=== PATIENT | female | born 1930 | race Caucasian/White ===

== ENCOUNTER → 2018-10-10 | Outpatient (CLI) | payer MEDICARE, BC ==
[~2018-10-10] MED LIST: ACYCLOVIR 200200 MG PO; ASPIR 8181 M1 PO; BP MED PO; CALCIUM 600 +1 EAC1 PO; CALCIUM-MAG-ZI1 EACH PO; CALCIUM500 MG PO; CATAPRESS3 TRANSDERM; CIPROFLOXACIN500 M1 PO; COLACE100 MG PO; CYCLOBENZAPRINE5 MG PO; DIOVAN320 MG PO; ETODOLAC 400 M400 M1 PO; FISH OIL 1,001000 M2 PO; FOLIC ACID0.8 MG PO; HCTZ; HYDROCHLOROTH12.5 M1 PO; HYDROCHLOROTHIA25 M1 PO; IRON325; K-DUR 20 MEQ T20 MEQ PO; LIPITOR10 MG PO; LISINOPRIL20 MG PO; MAGNESIUM GLUC500 M1 PO; MAGNESIUM400 MG PO; MAGOX 400400 MG PO; MELATONIN1 MG PO; MELATONIN3 MG PO; METOPROLOL SUCC50 MG PO; MINOCYCLINE HC100 M2 PO; NEXIUM; NEXIUM40 MG PO; NORCO 5-325 TA1 EACH PO; NORVASC10 MG PO; NORVASC5 MG PO; PLAVIX 75 MG TA75 M1 PO; POTASSIUM20; THIAMINE HCL500 MG PO; TOPROL XL100 MG PO; TOPROL XL50 MG PO; VITAMIN B-121000 MCG PO; VITAMIN D1000 UNI1 PO; VOLTAREN 50MG T50 MG PO; ZOCOR; ZOFRAN ODT4 MG PO
== END ==
LOC: M.MRI 09-12 14:30
DX: I63.9 Cerebral infarction, unspecified (principal); Z88.8 Allergy status to other drugs, medicaments and biological substances; Z88.5 Allergy status to narcotic agent

== ENCOUNTER → 2019-03-07 | Outpatient (CLI) | payer MEDICARE, BC ==
[~2019-03-07] MED LIST changes: +HYDROCODON-ACE1 EAC7 PO; +METOPROLOL SUC200 MG PO; -METOPROLOL SUCC50 MG PO
--- NOTE | ~2019-03-07 | PAINCON ---
[address] [address] PAIN MANAGEMENT CONSULTATION Name: SHAILA CHRISTIANSON Room: [facility] JAMEL Bowman#: [id number] Admission: 03/07/19 Attend Phys: Dion Ortega MD Discharge: Date of : 32 Report #: [id number] THIS REPORT FOR: //name// CC: Kathryn Ortega DATE OF SERVICE: 03/07/2019 CHIEF COMPLAINT: Back, cervical and lumbar pain for years. HISTORY: The patient is an 88-year-old female who has been seen in the pain clinic because of chronic pain. She suffers from pain and discomfort in the back and neck area. She has been quite problematic since 2017. The patient did have a CVA on 02/20/2017. Pain has gotten progressively worse. 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 She is less active at this point. Notes that her pain is a zero while she is sitting. Pain is most problematic when she is up and active. It can rise to the level of 8-9 with activity. She notes that cleaning and vacuuming are the two components which are most problematic. Vacuuming is quite objectionable. She has a history of spinal stenosis. Does note that sitting at the sink helps with the pain. After standing for a few minutes, the spinal stenosis pain starts to become problematic. Radiates down into her legs. Finds that sitting at the sink improves them so that she is able to finish a sink load of dishes. Feels that walking is "generally pretty good. She does have some pain in her knees. She has had both knees replaced, one partial and the other completely. Does have some pain and discomfort in the left and the right hip area. She does walk and use the cane. She has had SI joint injections in the past and found these beneficial. She feels that she would like to consider another injection in the future. She is currently on Plavix and cannot undergo an injection today. ALLERGIES: CODEINE, LIPITOR, CELEBREX. CURRENT MEDICATIONS: Aspirin 81 mg, Lipitor 10 mg, calcium, magnesium, zinc tablets daily, vitamin D 1000 units, Plavix 75 mg, vitamin B12 1000 mcg, fish oil 1000 mg, Colace 100 mg, hydrocodone 5/325 b.i.d., magnesium oxide 400 mg, melatonin 3 mg sleep supplement, metoprolol 200 mg ____. PAST MEDICAL HISTORY: Diabetes, hypertension, thyroid disease, joint disease/arthritis, history of transient ischemic attack in 2015, chronic kidney disease, GERD, anemia, shingles, seizures x 2, TIA x 2, right-sided CVA in 02/2017, hiatal hernia, back pain. PAST SURGICAL HISTORY: Hysterectomy, parotid gland removal, left ankle fracture, bilateral knee replacements. 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 REVIEW OF SYSTEMS: Generally good health, wears glasses, glaucoma/cataracts, ringing in the ears/loss of hearing. LABORATORY DATA: No new laboratory values are available. PAIN CLINIC ASSESSMENT AND PQRS: 1. The patient has had knee replacements, left and right. Height 5 feet 0 inches, weight 170 pounds, BMI 33.2. 2. Vital Signs: Blood pressure 187/73, heart rate 57, respiratory rate 16, room air saturation 96%, temperature 97.6. 3. Pain intensity 0-10 while sitting 8-9 with activity. 4. Fall risk. The patient has not fallen in the last 3 months. She does ambulate with use of a cane. 5. Blood thinner. The patient is on a blood thinning medication, Plavix. 6. Hypertension. The patient is being treated for hypertension. 7. Opioids greater than 6 weeks. The patient is not on a opioid regimen. 8. Risk assessment tool, low for opioid use. 9. Functional assessment tool. 10. Recreational drug use. The patient denies. 11. Tobacco: The patient denies use of tobacco. 12. Alcohol. The patient denies use of alcoholic beverage. PHYSICAL EXAMINATION: GENERAL: The patient is a well-developed, well-nourished white female, who appears her stated age. She is alert and oriented x 3. Affect is appropriate. Speech is fluent. HEENT: Normocephalic, atraumatic. Extraocular eye muscles intact. Sclerae nonicteric. Mucous membranes are moist. HEART: Regular rate. LUNGS: Clear to auscultation. ABDOMEN: Nontender. MUSCULOSKELETAL: Upper extremity muscle strength judged to be 4-/5 for the major muscle groups in the upper extremity. The patient has pain in the low back area. Has pain in the area of her SI joint, left and right. Has pain in the mid back area across the lumbar area near L4-L5 and L5-S1 with pain radiating into the paraspinous muscle areas. The patient also has pain that radiates down into the left and the right SI joints. IMPRESSION: 1. Chronic back pain with spinal stenosis with pain that radiates down into the buttocks and hip areas. 2. SI joint pain, left and right. 3. Cervical pain. 4. Diabetes. [address] [place] [address] PAIN MANAGEMENT CONSULTATION Name: SHAILA CHRISTIANSON Room: [facility].#: [id number] Admission: 03/07/19 Attend Phys: Dion Ortega MD Discharge: Date of : 32 Report #: [id number] 5. Hypertension. 6. Thyroid disease. 7. Joint disease/arthritis. 8. History of transient ischemic attack in 2015. 9. Chronic kidney disease. 10. Gastroesophageal reflux disease. 11. Anemia. 12. Shingles. 13. Seizures x 2. 14. Transient ischemic attack x 2. 15. Right-sided cerebrovascular accident in 02/2017. 16. Hiatal hernia. 17. Back pain. RECOMMENDATIONS: We discussed treatment options with the patient. At this juncture, we will consider a trial of hydrocodone. The patient will try the hydrocodone medication and note its efficacy. She will return to the Pain Clinic in the near future should she desire to have a SI joint injection. These were performed in the past and she found that these were beneficial and help with pain, which is similar to what she is experiencing. The patient is aware that opioid medications can be problematic. She has taken them before. She finds that these medications are quite helpful, particularly when she is having pain. She will call us if she has any concerns. We would like to thank you for letting us participate in her care. We hope she continues to improve. By: [id number] [id number]. Fco Ortega MD /nt
== END ==
LOC: M.PC 04:49
DX: M54.5 Low back pain (principal); M54.2 Cervicalgia; G89.29 Other chronic pain; K21.9 Gastro-esophageal reflux disease without esophagitis; E11.22 Type 2 diabetes mellitus with diabetic chronic kidney disease; I12.9 Hypertensive chronic kidney disease with stage 1 through stage 4 chronic kidney disease, or unspecified chronic kidney disease; N18.9 Chronic kidney disease, unspecified; Z88.5 Allergy status to narcotic agent; Z79.82 Long term (current) use of aspirin; Z79.899 Other long term (current) drug therapy; Z86.73 Personal history of transient ischemic attack (TIA), and cerebral infarction without residual deficits; Z90.710 Acquired absence of both cervix and uterus; Z96.653 Presence of artificial knee joint, bilateral; Z79.891 Long term (current) use of opiate analgesic

== ENCOUNTER 2019-12-18 14:26 | Inpatient (IN) | payer MEDICARE, BC ==
[~2019-12-18] VITALS: Ht 157.5 cm; Wt 71.7 kg
--- NOTE | ~2019-12-18 | CON ---
[address] [address] CONSULTATION Name: MEGHANSHAILA CAMILO Room: [address] ADM IN M.R.#: [id number] Admission: 12/18/19 Attend Phys: Bear Blanca MD Discharge: Date of : 32 Report #: [id number] THIS REPORT FOR: //name// cc: Kathryn Rojo Maggie M. DO ~ THIS REPORT FOR: //name// CC: Bear Rojo DO DICTATED BY: Zaida Valdez POLYMERIZATION OVEN OPERATOR DATE OF SERVICE: 12/19/2019 Please note at the time of this dictation, the patient was seen and physically examined by myself. REASON FOR CONSULTATION: Melanotic stool. HISTORY OF PRESENT ILLNESS: This is an 89-year-old female who presented to the Emergency Room with complaints of having black stool, which she states has been occurring over the last several days; however, in talking with her, she does have somewhat of memory issues she states from a previous stroke 3 years ago. She tells me it has been 2-3 weeks; however, hemoglobin on admission is not reflective of that and on admission she was 13.7. She continues to complain that she has had melanotic stools, but she has had none since she has been here. The patient is also on Plavix as well due to her previous stroke. She states she has had upper and lower scopes done it sounds like at [facility] years ago and we will obtain those records. ALLERGIES: INCLUDE CELEBREX, STATINS AND CODEINE. MEDICATIONS: From home include Plavix, vitamin B12, fish oil, magnesium oxide, aspirin, vitamin D, melatonin, metoprolol, Plavix, Lipitor, calcium, and Colace. PAST MEDICAL HISTORY: Consistent of chronic kidney disease, GERD, anemia, hypertension, type 2 diabetes, hyperlipidemia, vitamin D deficiency, history of seizures, TIA x 2 with a right CVA in 02/2017, hiatal hernia, shingles. PAST SURGICAL HISTORY: Hysterectomy, parotid gland removal, left ankle fracture, bilateral knee replacements. FAMILY HISTORY: Negative for any GI or female cancers. SOCIAL HISTORY: Denies any alcohol, [place] [address] CONSULTATION Name: SHAILA CHRISTIANSON Room: [address] IN [facility].#: [id number] Admission: 12/18/19 Attend Phys: Bear Blanca MD Discharge: Date of : 32 Report #: [id number] REVIEW OF SYSTEMS: Twelve-point review of systems is essentially negative except what is mentioned in the HPI. PHYSICAL EXAMINATION: VITAL SIGNS: Temperature 36.6, pulse 79, respirations 18, blood pressure 179/55. HEART: Regular rate and rhythm. LUNGS: Clear. ABDOMEN: Soft, positive bowel sounds in all 4 quadrants with some slight epigastric tenderness noted to palpation. LABORATORY DATA: Hemoglobin 13.8, white count 9.9, platelets 217. GFR is 39, BUN is 21, creatinine is 1.3. LFTs are normal. On admission, her BUN was 26. PT 10.6, INR 1. The patient had a CT angio that shows a large hiatal hernia with no active extravasation of contrast to indicate an acute GI bleed. IMPRESSION: 1. Melanotic stool. 2. Epigastric pain. 3. Anticoagulant therapy. 4. History of cerebrovascular accident, 2017. PLAN: 1. EGD today with Dr. Khan. 2. Further recommendations to be made once the procedure has been performed. Thank you for allowing us to participate in this patient's care. Please do not hesitate to call with any questions in regard to this consult. By: 1133 1145Augustin Khan MD /nt
--- NOTE | ~2019-12-18 | PROC ---
[address] [address] PROCEDURE REPORT Name: SHAILA CHRISTIANSON Room: [address] IN M.R.#: [id number] Admission: 12/18/19 Attend Phys: Bear Blanca MD Discharge: 12/20/19 Date of : 32 Report #: [id number] THIS REPORT FOR: //name// cc: Kathryn Rojo Maggie M. DO ~ THIS REPORT FOR: //name// For GI report, please see the Provation report in Perceptive 7 content. By: 0830Medical Records Staff [facility] /LEIDY
[2019-12-18 14:32] VITALS: BP 100/999; BP 201/99
[2019-12-18] MEDS ORDERED: PLAVIX 75 MG TA75 MG PO (14:37)
[2019-12-18 14:57] LABS: ABSOLUTE BASOPHILS 0.1 thou/uL (0.0-0.2); ABSOLUTE EOSINOPHILS 0.3 thou/uL (0.0-0.7); ABSOLUTE LYMPHOCYTES 3.6 thou/uL (0.8-5.3); ABSOLUTE MONOCYTES 0.8 thou/uL (0.0-1.2); ABSOLUTE NEUTROPHILS 4.5 thou/uL (1.6-8.1); BASOPHILS 1.1 %; EOSINOPHILS 2.9 %; HEMATOCRIT 40.4 % (37.0-47.0); HEMOGLOBIN 13.7 gm/dL (12.0-15.0); LYMPHOCYTES 38.4 %; MCH 32.1 pg (26.0-34.0); MCHC 34.1 g/dL (28.0-37.0); MCV 94.3 fL (80.0-100.0); MONOCYTES 8.7 %; MPV 8.7 fl. (7.2-11.1); NUCLEATED RBCS 0 /100WBC; PLATELET COUNT* 238 thou/uL (150-400); POLYS 48.9 %; RBC 4.28 mil/uL (4.20-5.00); RDW-CV 13.8 % (10.5-14.5); WBC 9.3 thou/uL (4.0-11.0)
[2019-12-18 14:57] LABS: URINE BILIRUBIN NEGATIVE (Negative); URINE BLOOD NEGATIVE (Negative); URINE CLARITY CLEAR; URINE COLOR YELLOW; URINE GLUCOSE-RANDOM NEGATIVE (Negative); URINE KETONES NEGATIVE (Negative); URINE LEUKOCYTES-REFLEX NEGATIVE (Negative); URINE NITRITE-REFLEX NEGATIVE (Negative); URINE PROTEIN 2+ (Negative); URINE UROBILINOGEN 0.2 E.U./dl (0.2-1.0)
[2019-12-18 15:02] LABS: APTT 26.8 Seconds (25.0-31.3); CALCIUM 9.6 mg/dL (8.5-10.1); CREATININE 1.4 mg/dL (0.6-1.3); POTASSIUM 3.9 mmol/L (3.5-5.1); PROTIME 10.6 Seconds (9.20-11.50)
[2019-12-18 15:07] LABS: TOTAL BILIRUBIN 0.2 mg/dL (<0.1-1.0); TOTAL PROTEIN 7.3 g/dL (6.4-8.2)
[2019-12-18 15:07] LABS: BACTERIA-REFLEX 1-9 Few /HPF (None Seen); CASTS None Seen /LPF (None Seen); CRYSTALS None Seen /LPF (None Seen); SQUAMOUS 0-3 Few /LPF (0-3); URINE RBC 0-2 Rare /HPF (0-2); URINE WBC-REFLEX 0-5 Rare /HPF (0-5)
[2019-12-18 18:25] VITALS: BP 198/80
[2019-12-18 20:00] VITALS: BP 125/62
[2019-12-18] MEDS ORDERED: FISH OIL 1,0001 EAC9 PO (20:29)
[2019-12-19] VITALS (7 sets, daily range): BP systolic 124–181; BP diastolic 55–77
[2019-12-19 04:35] LABS: ABSOLUTE BASOPHILS 0.1 thou/uL (0.0-0.2); ABSOLUTE EOSINOPHILS 0.1 thou/uL (0.0-0.7); ABSOLUTE LYMPHOCYTES 2.5 thou/uL (0.8-5.3); ABSOLUTE MONOCYTES 0.9 thou/uL (0.0-1.2); ABSOLUTE NEUTROPHILS 6.3 thou/uL (1.6-8.1); BASOPHILS 0.8 %; HEMATOCRIT 40.4 % (37.0-47.0); HEMOGLOBIN 13.8 gm/dL (12.0-15.0); LYMPHOCYTES 25.4 %; MCHC 34.2 g/dL (28.0-37.0); MCV 93.7 fL (80.0-100.0); MPV 9.2 fl. (7.2-11.1); NUCLEATED RBCS 0 /100WBC; PLATELET COUNT* 217 thou/uL (150-400); POLYS 63.8 %; RBC 4.31 mil/uL (4.20-5.00); RDW-CV 13.8 % (10.5-14.5); WBC 9.9 thou/uL (4.0-11.0)
[2019-12-19 05:03] LABS: CALCIUM 9.4 mg/dL (8.5-10.1); CREATININE 1.3 mg/dL (0.6-1.3); POTASSIUM 3.3 mmol/L (3.5-5.1)
--- NOTE | 2019-12-19 12:32 | EKG ---
[place] [address] ELECTROCARDIOGRAM REPORT Name: GRIFFIN CHRISTIANSONDIJOSE PAGE Room: [address] ADM IN M.R.#: [id number] Admission: 12/18/19 Attend Phys: Bear Blanca, Discharge: Date of : 32 Date of Service: 12/18/19 1454 Report #: [id number] THIS REPORT FOR: //name// [facility] ED Test Date: 2019-12-18 Test Time: 14:54:30 Pat Name: SHAILA CHRISTIANSON Department: Room: [facility] Gender: F Quality Internship: : 1930 Requested By: Chi Jimenez Order Number: [id number] MD: Sal Sanders Measurements Intervals [place] Rate: 72 P: 84 [place]: 164 QRS: 59 QRSD: 141 T: -2 QT: 410 QTc: 449 Interpretive Statements Sinus rhythm Ventricular trigeminy Right bundle branch block Compared to ECG 03/25/2017 12:17:39 Ventricular premature complex(es) now present Electronically Signed On 12-19-2019 12:32:07 CDT by Sal Sanders [email or web address] <ELECTRONICALLY SIGNED> By: Sal Sanders MD, FACC 12/19/19 1232 1454 1454 Sal Sanders MD, FAC /EPI
[2019-12-20] VITALS (8 sets, daily range): BP systolic 138–236; BP diastolic 49–80
[2019-12-20 05:11] LABS: CALCIUM 9.2 mg/dL (8.5-10.1); CREATININE 1.5 mg/dL (0.6-1.3); POTASSIUM 4.6 mmol/L (3.5-5.1)
[2019-12-20 05:23] LABS: ABSOLUTE BASOPHILS 0.1 thou/uL (0.0-0.2); ABSOLUTE LYMPHOCYTES 2.6 thou/uL (0.8-5.3); ABSOLUTE MONOCYTES 0.8 thou/uL (0.0-1.2); ABSOLUTE NEUTROPHILS 6.3 thou/uL (1.6-8.1); BASOPHILS 0.8 %; EOSINOPHILS 0.3 %; HEMATOCRIT 38.5 % (37.0-47.0); HEMOGLOBIN 13.2 gm/dL (12.0-15.0); LYMPHOCYTES 26.3 %; MCH 32.4 pg (26.0-34.0); MCHC 34.4 g/dL (28.0-37.0); MCV 94.2 fL (80.0-100.0); MONOCYTES 8.1 %; NUCLEATED RBCS 0 /100WBC; PLATELET COUNT* 219 thou/uL (150-400); POLYS 64.5 %; RBC 4.09 mil/uL (4.20-5.00); RDW-CV 14.1 % (10.5-14.5); WBC 9.7 thou/uL (4.0-11.0)
[2019-12-20] MEDS ORDERED: PROTONIX40 M1 PO (10:07)
--- NOTE | 2019-12-23 15:10 | PATH ---
[address] [address] PATHOLOGY RPT PROCEDURE Name: CHRISTIANSONMANA CAMILO Room: [address] IN M.R.#: [id number] Admission: 12/18/19 Date of : 32 Discharge: 12/20/19 Report #: [id number] Path Case #: [id number] [facility] Accession Number: [id number] . 01 Material submitted: . stomach - GASTRIC BIOPSY R/O H-PYLORI . 01 Clinical history: . R/O H. pylori . 02 Diagnosis: Gastric biopsy: - Moderate chronic active gastritis with abundant Helicobacter pylori organisms, negative for granulomas and dysplasia. (EDOUARD:flaquita; 12/23/2019) . Special stain: H. pylori immuno QMS 12/23/2019 1130 Local . 02 Electronically signed: . Franc Shelton MD, Pathologist NPI- [id number] . 01 Gross description: . The specimen is received in formalin, labeled "Christianson, Mana, gastric biopsy" and consists of 3 fragments of pink-ortez tissue measuring between 0.2 x 0.2 cm and 0.3 x 0.3 cm which are entirely submitted in A1. (SDY; 12/20/2019) SYU/SYU 12/20/2019 1134 Local . 02 Pathologist provided ICD-10: K29.50, B96.81 . 02 CPT . 409186, E94710 Specimen Comment: A courtesy copy of this report has been sent to [phone] Specimen Comment: [phone], Specimen Comment: Report sent to ,DR MONROY / DR LOREDO Performed at: 01 [facility] [address] [facility] [address], [place], [place] [address] MD Yang Turner MD Phone: [phone] Performed at: 02 [facility] [address], [place], [place] [address] MD Franc Shelton MD Phone: [phone]
== END 2019-12-20 11:45 | disposition home or self-care (01) | DRG 377 ==
LOC: M.ERS 14:26 → M.TBA-ER 15:00 → M.2W 15:00
PROVIDERS: Family Medicine; ADMIT Internal Medicine; ATTEND Internal Medicine
PROC: 0DB68ZX Excision of Stomach, Via Natural or Artificial Opening Endoscopic, Diagnostic (ICD-10-PCS; principal; 2019-12-19)
DX: K29.71 Gastritis, unspecified, with bleeding (principal); N17.0 Acute kidney failure with tubular necrosis; Z20.828 Contact with and (suspected) exposure to other viral communicable diseases; K21.9 Gastro-esophageal reflux disease without esophagitis; E11.22 Type 2 diabetes mellitus with diabetic chronic kidney disease; E78.5 Hyperlipidemia, unspecified; Z96.653 Presence of artificial knee joint, bilateral; I12.9 Hypertensive chronic kidney disease with stage 1 through stage 4 chronic kidney disease, or unspecified chronic kidney disease; K44.9 Diaphragmatic hernia without obstruction or gangrene; N18.3 Chronic kidney disease, stage 3 (moderate); Z90.710 Acquired absence of both cervix and uterus; Z87.81 Personal history of (healed) traumatic fracture; Z86.73 Personal history of transient ischemic attack (TIA), and cerebral infarction without residual deficits; Z88.6 Allergy status to analgesic agent; Z88.8 Allergy status to other drugs, medicaments and biological substances; Z79.01 Long term (current) use of anticoagulants

== ENCOUNTER 2020-07-24 09:49 | Inpatient (IN) | payer MEDICARE, BC ==
[2020-07-24] VITALS (7 sets, daily range): BP systolic 116–202; BP diastolic 50–102
[~2020-07-24] VITALS: Ht 152.4 cm; Wt 68.2 kg
--- NOTE | ~2020-07-24 | PROC ---
[address] [address] PROCEDURE REPORT Name: SHAILA CHRISTIANSON Room: [address] IN M.R.#: [id number] Admission: 07/24/20 Attend Phys: Rica Douglas Discharge: 07/27/20 Date of : 32 Report #: [id number] THIS REPORT FOR: cc: Kathryn Rojo Maggie M. DO ~ [facility],Medical Records Staff For GI report, please see the Provation report in Perceptive 7 content. By: 1207Medical Records Staff [facility] /LEIDY
[~2020-07-24 09:49] MED LIST changes: +FISH OIL 1,0001 EAC9 PO; +PLAVIX 75 MG TA75 MG PO; +PROTONIX40 M1 PO
[2020-07-24 10:07] LABS: URINE BILIRUBIN NEGATIVE (Negative); URINE BLOOD NEGATIVE (Negative); URINE CLARITY CLEAR; URINE COLOR YELLOW; URINE GLUCOSE-RANDOM NEGATIVE (Negative); URINE KETONES NEGATIVE (Negative); URINE LEUKOCYTES-REFLEX NEGATIVE (Negative); URINE PROTEIN 3+ (Negative); URINE UROBILINOGEN 0.2 E.U./dl (0.2-1.0)
[2020-07-24 10:08] LABS: URINE NITRITE-REFLEX POSITIVE (Negative)
[2020-07-24 10:15] LABS: SQUAMOUS 0-3 Few /LPF (0-3)
[2020-07-24 10:16] LABS: CASTS None Seen /LPF (None Seen); CRYSTALS None Seen /LPF (None Seen); MUCUS None Seen strn/LPF (None Seen); URINE RBC None Seen /HPF (0-2); URINE WBC-REFLEX 0-5 Rare /HPF (0-5)
[2020-07-24 10:30] LABS: ABSOLUTE BASOPHILS 0.1 thou/uL (0.0-0.2); ABSOLUTE EOSINOPHILS 0.4 thou/uL (0.0-0.7); ABSOLUTE LYMPHOCYTES 2.9 thou/uL (0.8-5.3); ABSOLUTE MONOCYTES 0.8 thou/uL (0.0-1.2); ABSOLUTE NEUTROPHILS 4.3 thou/uL (1.6-8.1); BASOPHILS 1.3 %; HEMOGLOBIN 13.6 gm/dL (12.0-15.0); LYMPHOCYTES 33.7 %; MCH 31.4 pg (26.0-34.0); MCHC 33.2 g/dL (28.0-37.0); MCV 94.8 fL (80.0-100.0); MONOCYTES 9.7 %; NUCLEATED RBCS 0 /100WBC; PLATELET COUNT* 217 thou/uL (150-400); POLYS 50.3 %; RBC 4.33 mil/uL (4.20-5.00); RDW-CV 14.3 % (10.5-14.5); WBC 8.6 thou/uL (4.0-11.0)
[2020-07-24 10:41] LABS: CALCIUM 8.9 mg/dL (8.5-10.1); CREATININE 1.3 mg/dL (0.6-1.3); POTASSIUM 3.7 mmol/L (3.5-5.1)
[2020-07-24 10:46] LABS: ALBUMIN 3.8 g/dL (3.4-5.0); TOTAL BILIRUBIN 0.3 mg/dL (<0.1-1.0); TOTAL PROTEIN 6.7 g/dL (6.4-8.2)
--- NOTE | 2020-07-24 18:39 | NUR ---
RECEIVED BEDSIDE REPORT FROM ROGER IN ER. PT ARRIVED TO TELE FLOOR AROUND 1420. PT ORIENTED TO ROOM BED AND CALL LIGHT. ADMISSION ASSESSMENT, HISTORY, EDUCATION AND VITALS COMPLETED CHARTED. MEDS PER EMAR. PT TO HAVE GI CONSULT IN AM WITH POTENTIAL COLONOSCOPY. PT STEADY ON FEET, UP AD MARITZA MULTIPLE TIMES TO THE BATHROOM. PT CURRENTLY RESTING IN BED. CALL LIGHT IS WITHIN REACH. HOURLY ROUNDING PERFORMED.
[2020-07-25 04:31] VITALS: BP 134/40
[2020-07-25 05:04] LABS: ABSOLUTE BASOPHILS 0.1 thou/uL (0.0-0.2); ABSOLUTE EOSINOPHILS 0.2 thou/uL (0.0-0.7); ABSOLUTE LYMPHOCYTES 2.2 thou/uL (0.8-5.3); ABSOLUTE MONOCYTES 0.8 thou/uL (0.0-1.2); BASOPHILS 0.9 %; HEMATOCRIT 39.2 % (37.0-47.0); HEMOGLOBIN 13.1 gm/dL (12.0-15.0); LYMPHOCYTES 24.3 %; MCH 31.4 pg (26.0-34.0); MCHC 33.5 g/dL (28.0-37.0); MCV 93.9 fL (80.0-100.0); MONOCYTES 8.6 %; MPV 9.5 fl. (7.2-11.1); NUCLEATED RBCS 0 /100WBC; PLATELET COUNT* 222 thou/uL (150-400); POLYS 64.2 %; RBC 4.18 mil/uL (4.20-5.00); RDW-CV 14.3 % (10.5-14.5); WBC 9.3 thou/uL (4.0-11.0)
[2020-07-25 05:22] LABS: CALCIUM 9.8 mg/dL (8.5-10.1); CREATININE 1.4 mg/dL (0.6-1.3); POTASSIUM 3.4 mmol/L (3.5-5.1)
[2020-07-25 08:00] VITALS: BP 177/57
--- NOTE | 2020-07-25 10:31 | EKG ---
[place] [address] ELECTROCARDIOGRAM REPORT Name: GRIFFIN CHRISTIANSONDITH CAMILO Room: [address] ADM IN M.R.#: [id number] Admission: 07/24/20 Attend Phys: Isaac Alvarado Discharge: Date of : 32 Date of Service: 07/24/20 1009 Report #: [id number] THIS REPORT FOR: //name// [facility] ED Test Date: 2020-07-24 Test Time: 10:09:37 Pat Name: SHAILA CHRISTIANSON Department: Room: [facility] Gender: F Swatch Checker: JOYCE : 1930 Requested By: Chi Jimenez Order Number: [id number] MD: Elijah Javed Measurements Intervals [place] Rate: 69 P: 81 [place]: 163 QRS: 76 QRSD: 148 T: -19 QT: 434 QTc: 465 Interpretive Statements Sinus rhythm Ventricular bigeminy Probable left atrial enlargement Right bundle branch block Baseline wander in lead(s) V1 Compared to ECG 12/18/2019 14:54:30 No significant changes Electronically Signed On 07-25-2020 10:30:59 CERTIFIED TECHNICIAN by Elijah Javed [email or web address] <ELECTRONICALLY SIGNED> By: Elijah Javed MD, FACC 07/25/20 1030 1009 1009 Elijah Javed MD, FAC /EPI
--- NOTE | 2020-07-25 11:07 | NUR ---
CM SPOKE TO THE PT TO DISCUSS CM ASSESSMENT. PT A&O, NORMALLY INDEPENDENT WITH ADL'S AND DRIVES. PT RESIDES AT HOME ALONE IN AN INDEPENDENT LIVING APARTMENT. PT INFORMS THAT HER COUSIN AND HER SON ARE ABLE TO ASSIST HER IF SHE EVER NEEDED IT. PT OWNS A CANE AND A WALKER, BUT ONLY USED THE CANE PRIOR TO ADMIT. PT HAS PAST HX OF HH. PT HAS 0 SNF HX. CM WILL REMAIN AVAILABLE TO ASSIST AND FOLLOW NEEDED.
[2020-07-25 11:41] VITALS: BP 114/69
[2020-07-25 12:38] LABS: MAGNESIUM 1.9 mg/dL (1.8-2.4); PHOSPHORUS* 4.1 mg/dL (2.5-4.9)
[2020-07-25 20:00] VITALS: BP 142/65
[2020-07-25 23:55] VITALS: BP 132/68
[2020-07-26] VITALS (8 sets, daily range): BP systolic 124–197; BP diastolic 47–90
[2020-07-26 05:21] LABS: ABSOLUTE EOSINOPHILS 0.2 thou/uL (0.0-0.7); ABSOLUTE LYMPHOCYTES 2.7 thou/uL (0.8-5.3); ABSOLUTE MONOCYTES 0.8 thou/uL (0.0-1.2); ABSOLUTE NEUTROPHILS 4.4 thou/uL (1.6-8.1); BASOPHILS 0.6 %; EOSINOPHILS 2.5 %; HEMATOCRIT 38.1 % (37.0-47.0); HEMOGLOBIN 12.9 gm/dL (12.0-15.0); LYMPHOCYTES 33.2 %; MCH 31.9 pg (26.0-34.0); MCHC 33.9 g/dL (28.0-37.0); MCV 94.1 fL (80.0-100.0); MONOCYTES 9.7 %; MPV 9.7 fl. (7.2-11.1); NUCLEATED RBCS 0 /100WBC; PLATELET COUNT* 203 thou/uL (150-400); RBC 4.04 mil/uL (4.20-5.00); RDW-CV 14.3 % (10.5-14.5); WBC 8.1 thou/uL (4.0-11.0)
[2020-07-26 05:39] LABS: CALCIUM 8.8 mg/dL (8.5-10.1); CREATININE 1.6 mg/dL (0.6-1.3); POTASSIUM 3.8 mmol/L (3.5-5.1)
--- NOTE | 2020-07-26 13:31 | CON ---
[facility] [address] [place] [address] CONSULTATION Name: SHAILA CHRISTIANSON Room: [address] ADM IN M.R.#: [id number] Admission: 07/24/20 Attend Phys: Rica Douglas Discharge: Date of : 32 Report #: [id number] THIS REPORT FOR: cc: Kathryn Rojo Maggie M. DO ~ Oscar Lebron DO DATE OF SERVICE: 07/25/2020 REFERRING PHYSICIAN: Baer Blanca MD. REASON FOR CONSULTATION: Dark stools. IMPRESSION: 1. Dark stools compatible with melena of uncertain etiology -- evaluate for upper gastrointestinal tract sources for the same. 2. Large hiatal hernia with possible organoaxial rotation, which may or may not be symptomatic. 3. History of nonsteroidal use. 4. History of previous stroke, with the need to be on chronic Plavix and aspirin. 5. History of remote colonoscopy in 2009, which only revealed diverticular disease and external hemorrhoids. RECOMMENDATIONS: 1. Since the patient has only had been having dark stools and no bright red bleeding, we will proceed with upper endoscopy tomorrow morning. I have discussed the nature, risks, benefits and alternatives of the procedure with the patient as well. 2. I am hopeful that I will find something going on within her upper GI tract because she would need to have a 2-day bowel preparation if we look into her colon for source of her black stools. I have discussed these plans with the patient as well and she is agreeable to the same. HISTORY: The patient is a very pleasant 89-year-old white female, whom I have seen as far back as 2002, who presented to the hospital because of problems with some dark-tarry stools, which have been ongoing for the last 2 or 3 days. She denies any complaints of any dysphagia or odynophagia, but did have some problems with some chest discomfort while she was eating earlier in the week. She denies any heartburn or indigestion. She has not had any severe chest discomfort or chest pain to suggest that she has a gastric volvulus or torsion. She states her appetite is good and she has not had any associated weight loss. She has been having some dark stools over the last 2 or 3 days. She has been taking some nonsteroidals, but cannot remember anything because she has had previous stroke. She does take clopidogrel and aspirin [place] [address] CONSULTATION Name: SHAILA CHRISTIANSON Room: [address] IN [facility].#: [id number] Admission: 07/24/20 Attend Phys: Rica Douglas Discharge: Date of : 32 Report #: [id number] As I mentioned above, she has undergone endoscopic evaluations by us in the past, last of which was performed in last February by our associate, Dr. Khan, which revealed a large hiatal hernia, possible paraesophageal hernia. It was not felt that she would go to surgery for the same because of her age and previous comorbidities. She also had some records from 2009, when she underwent both upper and lower endoscopy as well as small bowel series by [facility] and Dr. Abarca and her upper endoscopy revealed a hiatal hernia, colonoscopy revealed diverticular disease and small bowel series revealed hiatal hernia. In reviewing her CT scans and x-rays, she has had this hernia for a long time, but has probably got progressively worse as our CT scan revealed that the majority of her stomach is up in her chest. ALLERGIES: TO CELEBREX, STATINS AND CODEINE. MEDICATIONS: At home include vitamin B12, clopidogrel, atorvastatin, calcium with magnesium, zinc, vitamin D, magnesium oxide, aspirin, Colace, fish oil, melatonin and metoprolol. She was also supposed to be taking Protonix, but it is unclear whether she was doing that at this time. PAST MEDICAL AND SURGICAL HISTORY: Remarkable for hypertension, previous stroke, hyperlipidemia. She has had problem with chronic kidney disease and chronic renal insufficiency, problem with chronic anemia, diabetes. She has had previous hysterectomy, parotid gland removal. She had a left ankle fracture, bilateral knee replacements, chronic back pain. She had seizures in the past, TIAs in the past and a previous stroke in 02/2017. SOCIAL HISTORY: The patient was never a smoker and does not drink. FAMILY HISTORY: Negative for GI malignancy. PHYSICAL EXAMINATION: GENERAL: Pleasant 89-year-old white female who is awake and alert. CARDIOPULMONARY: Revealed a regular rate and rhythm. LUNGS: Clear. ABDOMEN: Soft, nontender. No rebound or guarding noted. LABORATORY DATA: From today revealed a white count of 9.3, hemoglobin 13.1, platelet count 222,000, MCV is 93.9 and RDW is 14.3. Her sodium is 141, potassium 3.4, chloride 103, bicarbonate is 25, her BUN is 20, creatinine 1.4 for GFR of 36. Total bilirubin is 0.3, alkaline phosphatase is 84, AST 26, ALT 25, albumin is 3.8. CT scan, as I mentioned above, revealed a large hiatal hernia with possible [facility] [address] [place] [address] CONSULTATION Name: SHAILA CHRISTIANSON Room: [address] IN ..#: [id number] Admission: 07/24/20 Attend Phys: Rica Douglas Discharge: Date of : 32 Report #: [id number] organoaxial rotation. The majority of her stomach is up in her chest, does have fatty infiltration of the liver, gallbladder is present, unremarkable, pancreas is normal, spleen is normal. She has a puffy cyst with her kidneys. Other than the hiatal hernia, she does have considered amount of stool throughout the colon without evidence for obstruction or thickening. DISCUSSION: At the present time, the patient has had some dark stools by possibly taking some nonsteroidals and has a large hiatal hernia, possibly a paraesophageal hernia. I would recommend that we proceed with an upper endoscopy tomorrow and make further recommendations thereafter. I have discussed the plans with the patient as well and she is agreeable to the same. <ELECTRONICALLY SIGNED> By: Oscar Lebron DO 07/26/20 1331 1340 1950Oscar Lebron DO /nt
--- NOTE | 2020-07-26 18:37 | NUR ---
PT TOLERATED UPPER GI SCOPE THIS AM, NO ONE TO WATCH HER AT HOME, SO DC TOMORROW 07/27. HYPERTENSIVE AT MORNING ASSESSMENT AND WHEN BACK FROM PROCEDURE WITH SBP IN 190 RANGE. MORNING MEDS HAD BEEN HELD FOR PROCEDURE, DOSE OF PRN BP MED GIVEN THIS AM. MEDS GIVEN WHEN BACK TO UNIT ALONG WITH ONE TIME DOSE OF IV BP MEDICATION. BP WITHIN ALLOWED PARAMETER WITHIN ONE HOUR.
[2020-07-27] VITALS: BP 183/63
[2020-07-27 04:00] VITALS: BP 163/74
[2020-07-27 08:00] VITALS: BP 130/70
[2020-07-27] MEDS ORDERED: PROTONIX40 M2 PO (10:07)
[2020-07-27 11:07] VITALS: BP 151/68
--- NOTE | 2020-07-27 11:27 | NUR ---
CM INFORMED DURING PRIME ROUNDING OF THE PLAN OF CARE FOR THE PT. PLAN FOR THE PT TO D/C HOME TODAY WITH SELF-CARE. NO CM D/C PLANNING NEEDS ANTICIPATED. CM WILL REMAIN AVAILABLE TO ASSIST AND FOLLOW NEEDED.
[2020-07-27 11:34] VITALS: BP 134/74
[2020-07-27 12:33] VITALS: BP 134/74
--- NOTE | 2020-07-27 12:34 | NUR ---
PATIENT DISCHARGED TODAY HOME WITH FAMILY. DISCHARGE INTRUCTIONS REVIEWED WITH PATIENT. MEDICATION CALLED TO [facility]. TRANSPORT ARRIVED AT 1219. ALL PERSONAL BELONGING SENT HOME WITH PATIENT.
== END 2020-07-27 12:20 | disposition home or self-care (01) | DRG 378 ==
LOC: M.ERS 09:49 → M.TBA-ER 11:19 → M.2W 11:19
PROVIDERS: Family Medicine; Internal Medicine; ADMIT Internal Medicine; ATTEND Internal Medicine
PROC: 0DJ08ZZ Inspection of Upper Intestinal Tract, Via Natural or Artificial Opening Endoscopic (ICD-10-PCS; principal; 2020-07-26)
DX: K25.4 Chronic or unspecified gastric ulcer with hemorrhage (principal); N17.9 Acute kidney failure, unspecified; I16.1 Hypertensive emergency; K44.9 Diaphragmatic hernia without obstruction or gangrene; K21.9 Gastro-esophageal reflux disease without esophagitis; E11.22 Type 2 diabetes mellitus with diabetic chronic kidney disease; E78.5 Hyperlipidemia, unspecified; N18.9 Chronic kidney disease, unspecified; I12.9 Hypertensive chronic kidney disease with stage 1 through stage 4 chronic kidney disease, or unspecified chronic kidney disease; G89.29 Other chronic pain; K29.70 Gastritis, unspecified, without bleeding; M54.9 Dorsalgia, unspecified; Z96.653 Presence of artificial knee joint, bilateral; Z20.822 Contact with and (suspected) exposure to COVID-19; Z79.82 Long term (current) use of aspirin; Z90.710 Acquired absence of both cervix and uterus; Z86.73 Personal history of transient ischemic attack (TIA), and cerebral infarction without residual deficits; Z79.01 Long term (current) use of anticoagulants; Z79.899 Other long term (current) drug therapy; Z88.5 Allergy status to narcotic agent; Z88.8 Allergy status to other drugs, medicaments and biological substances

== ENCOUNTER 2021-02-09 09:09 | Emergency (ER) | payer MEDICARE, BC ==
[~2021-02-09] VITALS: Ht 152.4 cm; Wt 48.5 kg
--- NOTE | ~2021-02-09 | EMS ---
[place] [address] EMS Patient Care Report Name: SHAILA CHRISTIANSON [id number] Admission: 02/09/21 Attend Phys: Discharge: 02/09/21 Date of : 34 Report #: [id number] THIS REPORT FOR: //name// Report Transmitted: 02/09/2021 20:31 EMS Care Summary [facility] Incident [id number] @ 02/09/2021 08:29 Incident Location [address] [place] [address] Patient SHAILA CHRISTIANSON Female, 89 Years 1930 Patient Address [address] [place] [address] Patient History Hypertension (HTN),Seizures,Stroke/CVA,Gastro-Esophageal Reflux Disease (GERD),TIA,Gastrointesinal Hemorrhage,Chronic Kidney Disease, Patient Allergies Codeine,Celecoxib, Patient Medications Colace, ASA, Metoprolol, Melatonin, Protonix, Chief Complaint Bloody stool Disposition Transported No Lights/[place] [facility] Reason Hemorrhage/Laceration Transported To [facility] Narrative Dispatched to a residence for 89y/o female with bloody stools. Upon arrival pt. was alert and oriented. Pt. c/o bloody stools for the past [place] [address] EMS Patient Care Report Name: SHAILA CHRISTIANSON Room: [facility]#: [id number] Admission: 02/09/21 Attend Phys: Discharge: 02/09/21 Date of : 32 Report #: [id number] other complaints including weakness, dizziness, nausea, and vomiting. Pt. was not able to give a good description of the blood in her stool. Pt. has history of HTN and has not taken her meds. today. VS were stable and pt. had no changes en route. Pt. was transported to [place] for emergency and GI services. Initial Vitals @09:00P: 71,R: 18,BP: 178/68,Pain: 0/10,GCS: 15,SpO2: 99,Revised Trauma: 12, @08:41P: 72,R: 18,BP: 197/64,Pain: 0/10,GCS: 15,SpO2: 99,Revised Trauma: 12, @08:50P: 69,R: 18,BP: 190/71,GCS: 15,SpO2: 98,Revised Trauma: 12, Impression Gastrointestinal hemorrhage Timeline 08:27,Call Received 08:29,Dispatched 08:30,En Route 08:32,Initial Responder On Scene 08:32,On Scene 08:35,At Patient 08:41,BP: 197/64 M,PULSE: 72,RR: 18 R,SPO2: 99 Ox,ETCO2: ,BG: ,PAIN: 0,GCS: 15, 08:44,Depart Scene 08:50,BP: 190/71 M,PULSE: 69,RR: 18 R,SPO2: 98 Ox,ETCO2: ,BG: ,PAIN: ,GCS: 15, 09:00,BP: 178/68 M,PULSE: 71,RR: 18 R,SPO2: 99 Ox,ETCO2: ,BG: ,PAIN: 0,GCS: 15, 09:05,At Destination 09:08,Transfer Patient 09:22,Call Closed 09:49,In District Disclaimer v1.1 Copyright 2020 [email or web address] This EMS Care Summary contains data elements from the applicable legal record (which may be displayed differently). It is designed to provide pertinent information for the following purposes: continuity of care, clinical quality, and state data reporting. The complete legal record is available to ED staff and administrators of the receiving hospital in [employer]'s Patient Tracker. All data is provided "as is."
[~2021-02-09 09:09] MED LIST changes: +PROTONIX40 M2 PO
[2021-02-09 10:42] LABS: ABSOLUTE BASOPHILS 0.1 thou/uL (0.0-0.2); ABSOLUTE LYMPHOCYTES 2.1 thou/uL (0.8-5.3); ABSOLUTE MONOCYTES 0.8 thou/uL (0.0-1.2); ABSOLUTE NEUTROPHILS 16.3 thou/uL (1.6-8.1); BASOPHILS 0.5 %; HEMATOCRIT 37.9 % (37.0-47.0); HEMOGLOBIN 12.4 gm/dL (12.0-15.0); LYMPHOCYTES 10.7 %; MCH 31.2 pg (26.0-34.0); MCHC 32.8 g/dL (28.0-37.0); MCV 95.3 fL (80.0-100.0); MONOCYTES 4.2 %; MPV 8.4 fl. (7.2-11.1); NUCLEATED RBCS 0 /100WBC; PLATELET COUNT* 286 thou/uL (150-400); POLYS 84.6 %; RBC 3.98 mil/uL (4.20-5.00); RDW-CV 14.2 % (10.5-14.5); WBC 19.2 thou/uL (4.0-11.0)
[2021-02-09 10:45] LABS: CREATININE 1.6 mg/dL (0.6-1.3)
--- NOTE | 2021-02-09 10:47 | EKG ---
[place] [address] ELECTROCARDIOGRAM REPORT Name: GRIFFIN CHRISTIANSONDIJOSE PAGE Room: [facility]#: [id number] Admission: 02/09/21 Attend Phys: Discharge: Date of : 32 Date of Service: 02/09/21 [facility] Report #: [id number] THIS REPORT FOR: //name// [facility] ED Test Date: 2021-02-09 Test Time: 10:24:05 Pat Name: SHAILA CHRISTIANSON Department: Room: Gender: F Interior Design Consultant: : 1930 Requested By: Chaka Lima Order Number: [id number] MD: Sal Sanders Measurements Intervals [place] Rate: 66 P: 82 [place]: 155 QRS: 67 QRSD: 142 T: -12 QT: 435 QTc: 456 Interpretive Statements Sinus rhythm Right bundle branch block Baseline wander in lead(s) III Compared to ECG 07/24/2020 10:09:37 Ventricular premature complex(es) no longer present Electronically Signed On 02-09-2021 10:47:42 CDT by Sal Sanders [email or web address] <ELECTRONICALLY SIGNED> By: Sal Sanders MD, FACC 02/09/21 1047 1024 1024 Sal Sanders MD, [facility] /EPI
[2021-02-09 10:50] LABS: ALBUMIN 4.1 g/dL (3.4-5.0); TOTAL BILIRUBIN 0.5 mg/dL (<0.1-1.0); TOTAL PROTEIN 7.3 g/dL (6.4-8.2)
[2021-02-09] MEDS ORDERED: METRONIDAZOLE500 M4 PO (14:57)
[2021-02-09] MEDS ORDERED: LEVOFLOXACIN500 MG PO (14:57)
[2021-02-09] MEDS ORDERED: FLAGYL500 M1 PO (15:01)
[2021-02-09] MEDS ORDERED: LEVAQUIN 500 M500 MG PO (15:01)
[2021-02-09 15:55] VITALS: BP 168/53
--- NOTE | 2021-02-10 14:16 | EKG ---
[place] [address] ELECTROCARDIOGRAM REPORT Name: SHAILA CHRISTIANSON Room: [facility]#: [id number] Admission: 02/09/21 Attend Phys: Discharge: 02/09/21 Date of : 34 Date of Service: 02/09/21 1353 Report #: [id number] THIS REPORT FOR: //name// [facility] ED Test Date: 2021-02-09 Test Time: 13:53:10 Pat Name: SHAILA CHRISTIANSON Department: Room: Gender: F Hematologist Oncologist: ROCHELLE : 1930 Requested By: Chaka Lima Order Number: [id number] Virgilio MD: Elijah Javed Measurements Intervals [place] Rate: 70 P: 84 HI: 154 QRS: 48 QRSD: 142 T: -23 QT: 436 QTc: 471 Interpretive Statements Sinus rhythm Right bundle branch block Compared to ECG 02/09/2021 10:24:05 No significant changes Electronically Signed On 02-10-2021 14:16:36 CDT by Elijah Javed [email or web address] <ELECTRONICALLY SIGNED> By: Elijah Javed MD, [facility] 02/10/21 1416 1353 1353 Elijah Javed MD, [facility] /EPI
== END 2021-02-09 15:59 | disposition home or self-care (01) ==
LOC: M.ERS 09:09
PROVIDERS: Emergency Medicine
DX: K92.2 Gastrointestinal hemorrhage, unspecified (principal); I12.9 Hypertensive chronic kidney disease with stage 1 through stage 4 chronic kidney disease, or unspecified chronic kidney disease; E11.22 Type 2 diabetes mellitus with diabetic chronic kidney disease; N18.9 Chronic kidney disease, unspecified; K21.9 Gastro-esophageal reflux disease without esophagitis; E78.5 Hyperlipidemia, unspecified; Z90.710 Acquired absence of both cervix and uterus; Z79.82 Long term (current) use of aspirin; Z79.899 Other long term (current) drug therapy; Z88.5 Allergy status to narcotic agent; Z88.6 Allergy status to analgesic agent

== ENCOUNTER 2021-02-20 08:26 | Inpatient (IN) | payer MEDICARE, BC ==
[~2021-02-20] VITALS: Ht 152.4 cm; Wt 61.7 kg
--- NOTE | ~2021-02-20 | EMS ---
[place] [address] EMS Patient Care Report Name: SHAILA CHRISTIANSON Room: [facility] Gracie#: [id number] Admission: 02/20/21 Attend Phys: Discharge: Date of : 32 Report #: [id number] THIS REPORT FOR: //name// Report Transmitted: 02/20/2021 08:18 EMS Care Summary [facility] Incident [id number] @ 02/20/2021 07:37 Incident Location [address] [place] [address] Patient SHAILA CHRISTIANSON Female, 89 Years 1930 Patient Address [address] [place] [address] Patient History Hypertension (HTN),Stroke/CVA, Patient Allergies Other drug allergy, Patient Medications Other, Chief Complaint Vomiting Disposition Transported No Lights/[place] Reason Abdominal Pain/Problems Transported To [facility] Narrative 89 y/o female pt found laying on couch at home upon EMS arrival. Pt was alert and oriented and complains of diarrhea and nausea/vomiting for the past week. [place] [id number] EMS Patient Care Report Name: SHAILA CHRISTIANSON Room: [facility] Gracie#: [id number] Admission: 02/20/21 Attend Phys: Discharge: Date of : 32 Report #: [id number] Pt states that she was seen at [facility] earlier this week and was discharged, but is not feeling better. She denies any Covid symptoms and states that she is vaccinated. Initial vitals and blood glucose were assessed on scene. Pt was moved to [facility] and placed in ambulance, where she was placed on panel monitor showing Sinus Tachycardia. During transport, a 20G IV was established in the LAC with a saline lock. Pt denies nausea medication at this time. Pt's BP was running high, and she states that she believes that she takes medication for hypertension but does not know what she takes exactly. Pt remained alert and oriented throughout transport and was continuously monitored and reassessed with no further complaints or changes. Care was transferred to RN at [facility]. Initial Vitals @07:50P: 109,R: 16,BP: 180/96,Pain: 4/10,GCS: 15,Glucose: 154,SpO2: 93,Revised Trauma: 12, @08:09P: 101,R: 16,BP: 221/88,Pain: 4/10,GCS: 15,SpO2: 97,Revised Trauma: 12, @08:17P: 101,R: 16,BP: 218/84,GCS: 15,SpO2: 97,Revised Trauma: 12, Impression Abdominal Pain Procedures @08:10Saline Lock 10cc (20 ga) Site: Antecubital-LeftResponse: UnchangedSucceeded Timeline 07:37,Call Received 07:37,Dispatched 07:40,En Route 07:42,Initial Responder On Scene 07:42,On Scene 07:43,At Patient 07:50,BP: 180/96 M,PULSE: 109,RR: 16 R,SPO2: 93 Ox,ETCO2: ,B,PAIN: 4,GCS: 15, 08:01,Depart Scene 08:09,BP: 221/88 M,PULSE: 101,RR: 16 R,SPO2: 97 Ox,ETCO2: ,BG: ,PAIN: 4,GCS: 15, 08:10,Saline Lock 10cc 20 ga Site: Antecubital-Left,Response: UnchangedSucceeded, 08:17,BP: 218/84 M,PULSE: 101,RR: 16 R,SPO2: 97 Ox,ETCO2: ,BG: ,PAIN: ,GCS: 15, 08:23,At Destination 08:25,Transfer Patient 08:58,Call Closed 08:58,[place] [address] EMS Patient Care Report Name: SHAILA CHRISTIANSON Room: [facility]#: [id number] Admission: 02/20/21 Attend Phys: Discharge: Date of : 32 Report #: [id number] Disclaimer v1.1 Copyright 2020 [employer] This EMS Care Summary contains data elements from the applicable legal record (which may be displayed differently). It is designed to provide pertinent information for the following purposes: continuity of care, clinical quality, and state data reporting. The complete legal record is available to ED staff and administrators of the receiving hospital in [employer]'s Patient Tracker. All data is provided "as is."
--- NOTE | ~2021-02-20 | PROC ---
[address] [address] PROCEDURE REPORT Name: SHAILA CHRISTIANSON Room: [address] IN M.R.#: [id number] Admission: 02/20/21 Attend Phys: Rica Douglas Discharge: 02/23/21 Date of : 32 Report #: [id number] THIS REPORT FOR: cc: Kathryn Rojo Maggie M. DO [facility],Medical Records Staff ~ For GI report, please see the Provation report in [employer] content. By: 0645Medical Records Staff CHRISTOPHER /LEIDY
[~2021-02-20 08:26] MED LIST changes: +FLAGYL500 M1 PO; +LEVAQUIN 500 M500 MG PO; +LEVOFLOXACIN500 MG PO; +METRONIDAZOLE500 M4 PO
[2021-02-20 08:28] VITALS: BP 220/84
[2021-02-20 09:03] LABS: ABSOLUTE BASOPHILS 0.1 thou/uL (0.0-0.2); ABSOLUTE LYMPHOCYTES 1.1 thou/uL (0.8-5.3); ABSOLUTE NEUTROPHILS 17.4 thou/uL (1.6-8.1); BASOPHILS 0.3 %; HEMATOCRIT 37.3 % (37.0-47.0); HEMOGLOBIN 12.4 gm/dL (12.0-15.0); LYMPHOCYTES 5.5 %; MCH 31.2 pg (26.0-34.0); MCHC 33.1 g/dL (28.0-37.0); MCV 94.2 fL (80.0-100.0); MONOCYTES 5.1 %; MPV 8.2 fl. (7.2-11.1); NUCLEATED RBCS 0 /100WBC; PLATELET COUNT* 220 thou/uL (150-400); POLYS 89.1 %; RBC 3.97 mil/uL (4.20-5.00); RDW-CV 13.8 % (10.5-14.5); WBC 19.5 thou/uL (4.0-11.0)
[2021-02-20 09:19] LABS: ALBUMIN 3.2 g/dL (3.4-5.0); CREATININE 1.2 mg/dL (0.6-1.3); POTASSIUM 3.1 mmol/L (3.5-5.1); TOTAL BILIRUBIN 0.5 mg/dL (<0.1-1.0); TOTAL PROTEIN 6.9 g/dL (6.4-8.2)
[2021-02-20 09:26] LABS: URINE BLOOD 1+ (Negative); URINE CLARITY CLEAR; URINE COLOR YELLOW; URINE GLUCOSE-RANDOM NEGATIVE (Negative); URINE KETONES 2+ (Negative); URINE LEUKOCYTES-REFLEX NEGATIVE (Negative); URINE NITRITE-REFLEX NEGATIVE (Negative); URINE PROTEIN 3+ (Negative); URINE SPECIFIC GRAVITY >= 1.030 (1.005-1.030); URINE UROBILINOGEN 0.2 E.U./dl (0.2-1.0)
[2021-02-20 09:27] LABS: URINE BILIRUBIN 1+ (Negative)
[2021-02-20 09:28] LABS: ICTOTEST (BILI CONFIRMATORY) Negative (Negative)
[2021-02-20 09:28] LABS: CALCIUM 9.4 mg/dL (8.5-10.1)
[2021-02-20 09:41] LABS: HYALINE CASTS >10 Many /LPF (None Seen); MUCUS 4-6 Moderate strn/LPF (None Seen)
[2021-02-20 09:42] LABS: CRYSTALS None Seen /LPF (None Seen); SQUAMOUS 4-10 Moderate /LPF (0-3)
[2021-02-20 09:43] LABS: BACTERIA-REFLEX 1-9 Few /HPF (None Seen); FINE GRANULAR CASTS 0-3 Few /LPF (None Seen); URINE RBC 0-2 Rare /HPF (0-2); URINE WBC-REFLEX 0-5 Rare /HPF (0-5)
--- NOTE | 2021-02-20 11:31 | EKG ---
[place] [address] ELECTROCARDIOGRAM REPORT Name: GRIFFIN CHRISTIANSONDITH CAMILO Room: [facility]-9 ADM IN .R.#: [id number] Admission: 02/20/21 Attend Phys: Isaac Alvarado Discharge: Date of : 34 Date of Service: 02/20/21 0836 Report #: [id number] THIS REPORT FOR: //name// [facility] ED Test Date: 2021-02-20 Test Time: 08:36:59 Pat Name: SHAILA CHRISTIANSON Department: Room: [facility] Gender: F Superintendent Power: KENDY : 1930 Requested By: Wesly Medrano Order Number: [id number] MD: Elijah Javed Measurements Intervals [place] Rate: 97 P: 71 NV: 153 QRS: 68 QRSD: 138 T: -4 QT: 363 QTc: 461 Interpretive Statements Sinus rhythm with supraventricular complex Ventricular bigeminy Right bundle branch block Compared to ECG 02/09/2021 13:53:10 Ventricular premature complex(es) now present Electronically Signed On 02-20-2021 11:31:40 CDT by Elijah Javed [email or web address] <ELECTRONICALLY SIGNED> By: Elijah Javed MD, [facility] 02/20/21 1131 5 Elijah Javed MD, FAC /EPI
--- NOTE | 2021-02-20 13:51 | NUR ---
PT GIVEN LUNCH TRAY AT THIS TIME.
[2021-02-20 16:18] VITALS: BP 129/69
[2021-02-20 20:32] VITALS: BP 188/65
[2021-02-20 21:45] VITALS: BP 188/65; BP 195/67
--- NOTE | 2021-02-20 23:00 | NUR ---
ALERT AND ORIENTED X 4 FEMALE PATIENT TO BED 205 BY CART FROM ER AT 2145 IN STABLE CONDITION. PATIENT TRANSFERED TO BED FROM CART WITH HAND HOLD ASSIST. ADMISSION ROUTINES IN PROGRESS. CONTINUE TO MONITOR.
[2021-02-21] VITALS (13 sets, daily range): BP systolic 112–179; BP diastolic 58–85
--- NOTE | 2021-02-21 01:42 | NUR ---
PATIENT BECAME TACHYCARDIC 38 WHICH PERSISTED WITH RATES 150'S-170. STAT EKG INITIATED WHILE REACHING DR. NICHOLS AT 0052. NEW ORDERS FOR EMILY LOPRESSOR, STAT LAB AND MED ORDERS FOR POTASSIUM REPLACEMENT AND PAIN. THIS WAS PROVIDED AT 0109 WITHOUT IMPROVEMENT. SECOND CALL INITIATED BY CHARGE NURSE KENYETTA Gomez RN WITH ORDERS FOR CARDIZEM BOLUS/DRIP RECEIVED. MEDS INITIATED AT 0117. CONTINUE TO MONITOR.
--- NOTE | 2021-02-21 04:57 | NUR ---
ONGOING SUPPORT OF PATIENT PRESENTING WITH AFIB W/ RVR. PATIENT HAS RECEIVED IV LOPRESSOR FOR BP SUPPORT WITH IMPROVEMENT. PATIENT HAS ALSO RECEIVED CARDIZEM DRIP AND ADDITIONAL IV DOSES OF DIGOXIN. CARDIOLOGY WAS CONSULTED AND NOTIFED BY CHARGE NURSE OF NIGHT'S EVENTS WITH NEW ORDERS RECEIVED AT 0334. PATIENT TO BE SEEN EARLY AM. PATIENT CURRENTLY RESTING QUIETLY WITHOUT COMPLAINT. A-FIB ON THE MONITOR WITH FLUCUATING BUT SOMEWHAT IMPROVED RATES 110-150. MAGNESIUM AND POTASSIUM REPLACEMENT IN PROGRESS. CONTINUE TO MONITOR.
[2021-02-21 11:23] LABS: ALBUMIN 2.7 g/dL (3.4-5.0); CALCIUM 8.9 mg/dL (8.5-10.1); CREATININE 1.1 mg/dL (0.6-1.3); TOTAL BILIRUBIN 0.4 mg/dL (<0.1-1.0); TOTAL PROTEIN 6.2 g/dL (6.4-8.2)
[2021-02-21 11:24] LABS: POTASSIUM 5.7 mmol/L (3.5-5.1)
[2021-02-21 15:29] LABS: HEMATOCRIT 36.7 % (37.0-47.0); HEMOGLOBIN 12.1 gm/dL (12.0-15.0); MCH 31.6 pg (26.0-34.0); MCHC 33.1 g/dL (28.0-37.0); MCV 95.3 fL (80.0-100.0); MPV 8.4 fl. (7.2-11.1); NUCLEATED RBCS 0 /100WBC; PLATELET COUNT* 224 thou/uL (150-400); RBC 3.85 mil/uL (4.20-5.00); WBC 20.5 thou/uL (4.0-11.0)
[2021-02-21 16:04] LABS: ABSOLUTE LYMPHOCYTES 2.3 thou/uL (0.8-5.3); ABSOLUTE MONOCYTES 1.6 thou/uL (0.0-1.2); ABSOLUTE NEUTROPHILS 16.6 thou/uL (1.6-8.1)
[2021-02-21 16:05] LABS: PLATELET ESTIMATE ADEQUATE
[2021-02-21 16:07] LABS: TOXIC GRANULATION 1+
[2021-02-22 02:10] LABS: URINE BLOOD TRACE (Negative); URINE CLARITY CLEAR; URINE COLOR YELLOW; URINE GLUCOSE-RANDOM NEGATIVE (Negative); URINE KETONES 1+ (Negative); URINE LEUKOCYTES-REFLEX NEGATIVE (Negative); URINE PROTEIN 2+ (Negative); URINE SPECIFIC GRAVITY >= 1.030 (1.005-1.030); URINE UROBILINOGEN 0.2 E.U./dl (0.2-1.0)
[2021-02-22 02:24] LABS: URINE BILIRUBIN 1+ (Negative); URINE NITRITE-REFLEX POSITIVE (Negative)
[2021-02-22 02:27] LABS: ICTOTEST (BILI CONFIRMATORY) Negative (Negative)
[2021-02-22 02:59] LABS: SQUAMOUS 4-10 Moderate /LPF (0-3)
[2021-02-22 03:00] LABS: HYALINE CASTS 0-3 Few /LPF (None Seen); URINE WBC-REFLEX 0-5 Rare /HPF (0-5)
[2021-02-22 03:01] LABS: BACTERIA-REFLEX 1-9 Few /HPF (None Seen); CRYSTALS None Seen /LPF (None Seen); URINE RBC 0-2 Rare /HPF (0-2)
[2021-02-22 04:00] VITALS: BP 160/57
--- NOTE | 2021-02-22 05:02 | NUR ---
PATIENT HAS REMAINED ALERT AND ORIENTED X 4, HARD OF HEARING. RESTING QUIETLY ON HOURLY ROUNDS. STATES FEELS WEAK. HANDHELD ASSIST TO BSC. URINE SAMPLE TO LAB OVERNIGHT. SR ON THE MONITOR AT FIRST RHYTHM ASSESSMENT AND THEN BACK TO AFIB WITH RATES IN THE 70'S AT MIDNIGHT AND 0400 ASSESSMENTS. NO CHEST PAIN REPORTED THIS SHIFT. BP STABLE. MEDS PER ORDER. FALL PRECAUTIONS AND DVT PREVENTION IN PLACE. CONTINUE TO MONITOR.
[2021-02-22 05:13] LABS: CALCIUM 8.8 mg/dL (8.5-10.1); MAGNESIUM 1.8 mg/dL (1.8-2.4)
--- NOTE | 2021-02-22 06:43 | NUR ---
CRITICAL RESULTS OF DIGOXIN 3.[address] DAY WHO RETURNED PAGE AT 7276. ALSO REPORTED MONITOR RHYTHMS OVERNIGHT AND CURRENT STATUS OF A-FIB WITH RATE IN THE 70'S AND LOW URINE OUTPUT OF 250 ML FOR THE SHIFT. NEW ORDERS RECEIVED.
--- NOTE | 2021-02-22 09:22 | NUR ---
CM COMPLETED THE INITIAL ASSESSMENT TO DISCUSS D/C PLAN. PT LIVES IN [facility] AL[facility].PT IS INDEPENDENT W/ADLS. PT PREPARE HER OWN MEALS. PT HAS A SON THAT LIVE LOCALLY TO ASSIST NEEDED. PT USES A WALKER. PTHAS HX WITH HH AFTER 2 KNEE REPLACEMENTS. CM TO CONT TO FOLLOW TO ASSIST WITH D/C PLAN NEEDED.
--- NOTE | 2021-02-22 10:09 | EKG ---
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 Advisor: : 1930 Requested By: Isaac Alvarado Order Number: [id number] Virgilio MD: Elijah Javed Measurements Intervals [place] Rate: 148 P: IA: QRS: 89 QRSD: 131 T: -73 QT: 266 QTc: 418 Interpretive Statements atrial fibrillation Right bundle branch block Compared to ECG 02/20/2021 08:36:59 Sinus rhythm no longer present Ventricular premature complex(es) no longer present Electronically Signed On 02-22-2021 10:09:24 CDT by Elijah Javed [email or web address] <ELECTRONICALLY SIGNED> By: Elijah Javed MD, [facility] 02/22/21 1009 0057 Elijah aJved MD, [facility] /EPI
--- NOTE | 2021-02-22 10:19 | EKG ---
[place] [address] ELECTROCARDIOGRAM REPORT Name: SHAILA CHRISTIANSON Room: [address] ADM IN .R.#: [id number] Admission: 02/20/21 Attend Phys: Isaac Alvarado Discharge: Date of : 34 Date of Service: 02/22/21 1018 Report #: [id number] THIS REPORT FOR: //name// [facility] Test Date: 2021-02-22 Test Time: 10:18:05 Pat Name: SHAILA CHRISTIANSON Department: Room: [address] Gender: F Is Manager: JOHN : 1930 Requested By: Elijah Javed Order Number: [id number] Virgilio MD: Elijah Javed Measurements Intervals [place] Rate: 54 P: ME: QRS: 66 QRSD: 127 T: -16 QT: 395 QTc: 375 Interpretive Statements Atrial fibrillation Right bundle branch block Compared to ECG 02/21/2021 00:57:17 rate has slowed Electronically Signed On 02-22-2021 10:19:33 CDT by Elijah Javed [email or web address] <ELECTRONICALLY SIGNED> By: Elijah Javed MD, FACC 02/22/21 1019 1018 1018 Elijah Javed MD, [facility] /EPI
[2021-02-22 12:00] VITALS: BP 141/50
--- NOTE | 2021-02-22 13:45 | 2DMMODE ---
[place] [address] 2 D/M-MODE ECHOCARDIOGRAM Name: SHAILA CHRISTIANSON Room: [address] ADM IN M.R.#: [id number] Admission: 02/20/21 Attend Phys: Isaac Alvarado Discharge: Date of : 34 Date of Service: 02/22/21 1345 Report #: [id number] THIS REPORT FOR: cc: Kathryn Rojo Maggie M. DO Blick, David R. MD [facility] ~ APPROVED REPORT Study performed: 02/22/2021 10:39:02 EXAM: Comprehensive 2D, Doppler, and color-flow Echocardiogram Patient Location: In-Patient Room #: [facility] Status: routine BSA: 1.58 HR: 82 bpm BP: 143/81 mmHg Rhythm: Atrial Fibrillation Other Information Study Quality: Good Indications Atrial Fibrillation Chest Pain 2D Dimensions IVSd: 12.30 (7-11mm) LVOT Diam: 19.32 (18-24mm) LVDd: 33.44 mm PWd: 11.10 (7-11mm) Ascending Ao: 27.72 (22-36mm) LVDs: 20.13 (25-40mm) Aortic Root: 29.63 mm Volumes Left Atrial Volume (Systole) LA ESV Index: 40.30 mL/m2 Aortic Valve AoV Peak Anup.: 1.27 m/s AO Peak Gr.: 6.42 mmHg LVOT Max P.75 mmHg AO Mean Gr.: 4.29 mmHg LVOT Mean P.02 mmHg LVOT Max V: 0.97 m/s AO V2 VTI: 25.06 cm LVOT Mean V: 0.66 m/s MUKESH (VTI): 1.95 cm2 LVOT V1 VTI: 16.69 [place] [address] 2 D/M-MODE ECHOCARDIOGRAM Name: GRIFFIN CHRISTIANSONDITH CAMILO Room: [address] IN .R.#: [id number] Admission: 02/20/21 Attend Phys: Isaac Alvarado Discharge: Date of : 34 Date of Service: 02/22/21 1345 Report #: [id number] TDI Medial E' Anup.: 0.08 m/s Lateral E' Anup.: 0.13 m/s Pulmonary Valve PV Peak Anup.: 1.30 m/s PV Peak Gr.: 6.81 mmHg Left Ventricle The left ventricle is normal size. There is normal LV segmental wall motion. Mild concentric left ventricular hypertrophy. Left ventricular systolic function is normal. The left ventricular ejection fraction is within the normal range. LVEF is 65-70%. This study is not technically sufficient to allow evaluation of the LV diastolic function due to atrial fibrillation. Right Ventricle The right ventricle is normal size. The right ventricular systolic function is normal. Atria Left atrium is mildly dilated. The right atrium size is normal. Aortic Valve Mild aortic valve sclerosis. No aortic regurgitation is present. There is no aortic valvular stenosis. Mitral Valve The mitral valve is normal in structure. Trace mitral regurgitation. No evidence of mitral valve stenosis. Tricuspid Valve The tricuspid valve is normal in structure. Trace tricuspid regurgitation. Unable to assess PA pressure. Pulmonic Valve The pulmonary valve is normal in structure. There is no pulmonic valvular regurgitation. Great Vessels The aortic root is normal in size. IVC is normal in size and collapses >50% with inspiration. Pericardium There [place] [address] 2 D/M-MODE ECHOCARDIOGRAM Name: SHAILA CHRISTIANSON Room: [address] IN .[place]itus.#: [id number] Admission: 02/20/21 Attend Phys: Isaac Alvarado Discharge: Date of : 34 Date of Service: 02/22/21 1345 Report #: [id number] <Conclusion> LVEF is 65-70%. Mild concentric left ventricular hypertrophy. Left atrium is mildly dilated. Mild aortic valve sclerosis. Trace mitral regurgitation. <ELECTRONICALLY SIGNED> By: Elijah Javed MD, [facility] 02/22/21 1345 1345 Elijah Javed MD, [facility] /INF
--- NOTE | 2021-02-22 15:48 | CON ---
[address] [address] CONSULTATION Name: SHAILA CHRISTIANSON Room: [address] ADM IN M.R.#: [id number] Admission: 02/20/21 Attend Phys: Rica Douglas Discharge: Date of : 34 Report #: [id number] THIS REPORT FOR: cc: Kathryn Rojo Maggie M. DO Blick,Elijah Zamora MD [facility] ~ DATE OF CONSULTATION: 02/21/2021 HISTORY OF PRESENT ILLNESS: The patient is an 89-year-old single white female who I was asked to see in the hospital today after she is noted to have an abnormal ECG. The history is obtained from the patient as well as some old records. There are no family members available. The patient has had several hospitalizations at [facility] in the past. 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 She was seen by Neurology and underwent rehabilitation. She was subsequently discharged. She was admitted here in December of 2009 with a GI bleed, felt to be secondary to gastritis. She had black stools at that time. She was then sent home. The patient was admitted in July of this year with another GI bleed. EGD showed a hiatal hernia. She was then discharged. She is not very active at this time because of her age and uses a walker. She lives in a long-term care facility. She came to the Emergency Room yesterday by ambulance with complaints of diarrhea lasting several days. She had some abdominal discomfort but no vomiting. She had a lack of appetite. Denies any chest pain, shortness of breath, palpitations, syncope, peripheral edema. She was brought to the Emergency Room yesterday and noted to be in tachycardia. She was admitted for further evaluation and treatment. PAST MEDICAL HISTORY: She has had previous hysterectomy, knee surgery, foot surgery. She does have a history of hypertension, chronic kidney disease. CURRENT MEDICATIONS: Consists of Plavix due to previous stroke, Lipitor, aspirin, metoprolol. ALLERGIES: SHE HAS A PREVIOUS INTOLERANCE TO CELEBREX, CODEINE. FAMILY HISTORY: Negative for heart disease. SOCIAL HISTORY: She is , lives by self in a long-term care facility. No smoking, alcohol abuse. REVIEW OF SYSTEMS: She has had no previous history of asthma, liver disease, cancer, psychiatric illness, chronic skin condition. PHYSICAL EXAMINATION: [place] [address] CONSULTATION Name: SHAILA CHRISTIANSON Room: [address] IN [facility]#: [id number] Admission: 02/20/21 Attend Phys: Rica Douglas Discharge: Date of : 34 Report #: [id number] GENERAL: Revealed an elderly, frail-appearing female, appeared in no acute distress. VITAL SIGNS: She had a blood pressure of 110/60, pulse is 140 and irregular. She is afebrile. HEENT: She was anicteric. Conjunctivae pink. Mucosa is moist. NECK: Veins not distended. CHEST: Clear to auscultation. HEART: Regular, tachycardia. ABDOMEN: Soft. EXTREMITIES: Had no edema. Dorsalis pedis pulse cannot be palpated. SKIN: Cool and dry. NEUROLOGIC: Nonfocal. LABORATORY DATA: Her ECG on admission yesterday showed a sinus rhythm with a right bundle branch block. The patient then went into a narrow complex tachycardia consistent with SVT versus atrial flutter versus atrial fibrillation. The patient had lab work that included a potassium of 3.1. Her creatinine is 1.2. Her liver function studies were normal. Albumin 3.2. High sensitivity troponin was 39. Her hemoglobin was 12.4. Her workup in the Emergency Room yesterday, she had a portable chest x-ray that showed large hiatal hernia, otherwise unremarkable. IMPRESSION AND RECOMMENDATIONS: 1. Diarrhea. 2. Hypertension. The patient is on beta jesus. 3. Hyperlipidemia. The patient is on a statin drug. 4. Previous stroke. The patient is on Plavix. 5. History of GI bleed secondary to gastritis. No recent bleeding. The patient is not anemic at this time. 6. Atrial flutter. The patient actually had an echocardiogram in 2017 that showed normal left ventricular function, left atrial enlargement, aortic sclerosis, mild mitral regurgitation. No evidence of intracardiac shunt. The patient does not appear to be a very good candidate for anticoagulation because of her history of GI bleeding. I would consider Watchman device. Because of her previous history of stroke; However, I would consider anticoagulation. If she remains in atrial flutter, I would consider cardioversion. <ELECTRONICALLY SIGNED> By: Elijah Javed MD, [facility] 02/22/21 1548 0646 [id number] Javed MD, [facility] /nt
[2021-02-22 16:00] VITALS: BP 149/43
[2021-02-23 00:26] VITALS: BP 167/87
[2021-02-23 05:01] VITALS: BP 167/47
[2021-02-23 05:26] LABS: ABSOLUTE LYMPHOCYTES 1.7 thou/uL (0.8-5.3); ABSOLUTE NEUTROPHILS 9.8 thou/uL (1.6-8.1); BASOPHILS 0.2 %; HEMATOCRIT 32.5 % (37.0-47.0); HEMOGLOBIN 10.8 gm/dL (12.0-15.0); LYMPHOCYTES 13.7 %; MCHC 33.2 g/dL (28.0-37.0); MCV 93.4 fL (80.0-100.0); MPV 8.8 fl. (7.2-11.1); NUCLEATED RBCS 0 /100WBC; PLATELET COUNT* 282 thou/uL (150-400); POLYS 78.1 %; RBC 3.47 mil/uL (4.20-5.00); RDW-CV 13.6 % (10.5-14.5); WBC 12.6 thou/uL (4.0-11.0)
[2021-02-23 05:37] LABS: CALCIUM 8.8 mg/dL (8.5-10.1); CREATININE 1.9 mg/dL (0.6-1.3); POTASSIUM 5.1 mmol/L (3.5-5.1)
--- NOTE | 2021-02-23 07:57 | NUR ---
PATIENT SLEPT MOST OF THE NIGHT. PATIENT HR HAS BEEN IN THE 40'S MOST OF THE NIGHT. CARDIOLOGY WAS PAGED LAST NIGHT AND DID NOT RETURN CALL. METOPROLOL WAS HELD AND NOTFIED DR. MONROY HE DISCONTINUED THE CARDIZEM AND SAID TO CLAIFY MEDS THIS MORNING. MORNING DOSE OF AMNIODARONE WAS HELD THIS MORNING DUE TO HR UPPER 30'S AND 40'S. AWAITING CARDIOLGY TO SEE PATIENT THIS MORNING. WILL CONTINUE TO MONITOR.
[2021-02-23 08:00] VITALS: BP 177/48
--- NOTE | 2021-02-23 15:55 | NUR ---
CM ASKED PT WHAT HH SHE USED IN THE PAST BUT SHE COULDNT RECALL. CM CHECKED PT'S CHART, PT HAS HX WITH [facility]. CM FAXED REF TO [phone].
[2021-02-23 16:55] VITALS: BP 177/48
--- NOTE | 2021-02-23 18:20 | NUR ---
patient discharged to home , all discharged instructions compleleted . No issue voiced at this time .
--- NOTE | 2021-02-24 12:14 | EKG ---
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: NATHANAEL : 1930 Requested By: Elijah Javed Order Number: [id number] Reading MD: Elijah Javed Measurements Intervals [place] Rate: 66 P: 96 FL: 155 QRS: 66 QRSD: 137 T: -18 QT: 416 QTc: 436 Interpretive Statements Sinus rhythm Right bundle branch block Compared to ECG 02/22/2021 10:18:05 Atrial fibrillation no longer present Electronically Signed On 02-24-2021 12:13:53 CDT by Elijah Javed [email or web address] <ELECTRONICALLY SIGNED> By: Elijah Javed MD, [facility] 02/24/21 1213 1728 1728 Elijah Javed MD, [facility] /EPI
== END 2021-02-23 18:15 | disposition home health service (06) | DRG 872 ==
LOC: M.ERS 08:26 → M.2W 10:29 → M.TBA-ER 10:29 → M.2W 20:15
PROVIDERS: Emergency Medicine Emergency Medical Services; Internal Medicine Cardiovascular Disease; Internal Medicine Gastroenterology; ADMIT Internal Medicine; ATTEND Internal Medicine
PROC: 0DJD8ZZ Inspection of Lower Intestinal Tract, Via Natural or Artificial Opening Endoscopic (ICD-10-PCS; principal; 2021-02-23)
DX: A41.9 Sepsis, unspecified organism (principal); E44.0 Moderate protein-calorie malnutrition; A04.9 Bacterial intestinal infection, unspecified; I48.92 Unspecified atrial flutter; Z20.822 Contact with and (suspected) exposure to COVID-19; K57.30 Diverticulosis of large intestine without perforation or abscess without bleeding; K64.4 Residual hemorrhoidal skin tags; N18.9 Chronic kidney disease, unspecified; K21.9 Gastro-esophageal reflux disease without esophagitis; E78.5 Hyperlipidemia, unspecified; Z96.653 Presence of artificial knee joint, bilateral; E86.0 Dehydration; E87.6 Hypokalemia; I48.91 Unspecified atrial fibrillation; I12.9 Hypertensive chronic kidney disease with stage 1 through stage 4 chronic kidney disease, or unspecified chronic kidney disease; E11.22 Type 2 diabetes mellitus with diabetic chronic kidney disease; Z90.710 Acquired absence of both cervix and uterus; Z87.81 Personal history of (healed) traumatic fracture; Z86.73 Personal history of transient ischemic attack (TIA), and cerebral infarction without residual deficits; Z88.6 Allergy status to analgesic agent; Z88.8 Allergy status to other drugs, medicaments and biological substances; Z68.26 Body mass index [BMI] 26.0-26.9, adult

== ENCOUNTER 2021-03-01 10:17 | Inpatient (IN) | payer MEDICARE, BC ==
[~2021-03-01] VITALS: Ht 152.4 cm; Wt 61.7 kg
--- NOTE | ~2021-03-01 | EMS ---
[place] [address] EMS Patient Care Report Name: SHAILA CHRISTIANSON Room: [facility] Gracie#: [id number] Admission: 03/01/21 Attend Phys: Discharge: Date of : 34 Report #: [id number] THIS REPORT FOR: //name// Report Transmitted: 03/01/2021 10:24 EMS Care Summary [facility] [employer] [facility] Incident [id number] @ 03/01/2021 09:31 Incident Location [address] [place] [address] Patient SHAILA CHRISTIANSON Female, 89 Years 1930 Patient Address [address] [place] [address] Patient History Hypertension (HTN),Stroke/CVA, Patient Allergies Codeine,Celecoxib, Patient Medications Atorvastatin, Plavix, Pantoprazole, Aspirin, Chief Complaint ankle injury Disposition Transported No Lights/[place]ert[place] Dispatch Reason Sick Person Transported To [facility] Narrative [facility] 1 was dispatched for a 89 year old female conscious and breathing that has a possible broken right ankle. Med 1 [place] [address] EMS Patient Care Report Name: SHAILA CHRISTIANSON Room: [facility] Bowman#: [id number] Admission: 03/01/21 Attend Phys: Discharge: Date of : 34 Report #: [id number] Arrival at the scene EMS personnel dismount the ambulance with the monitor, medical bag and stretcher. Patient is located inside the residence laying down on the couch. Patient acknowledges EMS presence is GCS 15, AAOx4. Patient has a patent airway is breathing adequately with strong regular radial pulses. Skin is pink warm and dry. Patient advises that she fell four days ago and was able to get onto the couch and has not been ambulatory since. Patient denies loss of consciousness or neck or back pain. Swollen right ankle and foot is noted. Patient has pulse with noted pain and tenderness upon assessment. Decreased range of motion noted. Patient advises that she would like to go to [place] for further evaluation. Patient is moved to the stretcher by EMS and fire personnel. Patient is placed on the stretcher in the fowlers position and secured with seatbelts and rails. Patient is wheeled to the ambulance and placed on the monitor to obtain VS and ECG. Patient is noted to be hypertensive and Sinus Rhythm noted. IV access is attempted and unsuccessful in the left antecubital with extravasation noted. Glucose check is 180mg/dl. Transport is initiated. Assessment conducted. Patient is GCS 15, AAOx4. Patient is noted to have been incontinent. No further injuries noted. Patient is stable. Arrival at the receiving facility patient condition is stable and unchanged. Patient is offloaded and taken to ED room 16. RN is given report and transfer of care is completed. Signatures are obtained and Med 1 returns to service. Initial Vitals @09:48P: 70,R: 18,BP: 220/77,Pain: 0/10,GCS: 15,Glucose: 180,SpO2: 97,Revised Trauma: 12,[place] Suspected: false @10:06P: 71,R: 18,BP: 207/77,GCS: 15,SpO2: 98,Revised Trauma: 12, Impression Acute Pain, not elsewhere classified Procedures @10:00Saline Lock 0cc (20 ga) Site: Antecubital-LeftResponse: UnchangedFailed@10:02ALS AssessmentResponse: UnchangedSucceeded Timeline 09:30,Call Received 09:31,Dispatched 09:33,En Route 09:35,Initial Responder On Scene 09:35,On Scene 09:38,At Patient 09:48,BP: 220/77 M,PULSE: 70,RR: 18 R,SPO2: 97 Ox,ETCO2: ,B,PAIN: 0,GCS: 15, [place] [address] EMS Patient Care Report Name: SHAILA CHRISTIANSON Room: [facility]#: [id number] Admission: 03/01/21 Attend Phys: Discharge: Date of : 34 Report #: [id number] 09:52,Depart Scene 10:00,Saline Lock 0cc 20 ga Site: Antecubital-Left,Response: UnchangedFailed, 10:02,ALS Assessment,Response: UnchangedSucceeded, 10:06,BP: 207/77 M,PULSE: 71,RR: 18 R,SPO2: 98 Ox,ETCO2: ,BG: ,PAIN: ,GCS: 15, 10:14,At Destination 10:26,Transfer Patient 10:52,Call Closed 10:52,In District Disclaimer v1.1 Copyright 2020 [employer] This EMS Care Summary contains data elements from the applicable legal record (which may be displayed differently). It is designed to provide pertinent information for the following purposes: continuity of care, clinical quality, and state data reporting. The complete legal record is available to ED staff and administrators of the receiving hospital in [employer]'s Patient Tracker. All data is provided "as is."
[2021-03-01 10:17] VITALS: BP 214/75
[~2021-03-01 10:17] MED LIST changes: -ASPIR 8181 M1 PO; +LOW DOSE ASPIRI81 M1 PO
[2021-03-01 12:40] LABS: ABSOLUTE LYMPHOCYTES 1.1 thou/uL (0.8-5.3); ABSOLUTE MONOCYTES 1.7 thou/uL (0.0-1.2); ABSOLUTE NEUTROPHILS 15.6 thou/uL (1.6-8.1); BASOPHILS 0.2 %; HEMATOCRIT 37.5 % (37.0-47.0); HEMOGLOBIN 12.3 gm/dL (12.0-15.0); LYMPHOCYTES 6.1 %; MCH 31.1 pg (26.0-34.0); MCHC 32.9 g/dL (28.0-37.0); MCV 94.4 fL (80.0-100.0); MONOCYTES 9.3 %; MPV 7.8 fl. (7.2-11.1); NUCLEATED RBCS 0 /100WBC; PLATELET COUNT* 316 thou/uL (150-400); POLYS 84.4 %; RBC 3.97 mil/uL (4.20-5.00); RDW-CV 13.7 % (10.5-14.5); WBC 18.5 thou/uL (4.0-11.0)
[2021-03-01 12:48] LABS: CALCIUM 8.8 mg/dL (8.5-10.1); CREATININE 1.1 mg/dL (0.6-1.3); POTASSIUM 4.5 mmol/L (3.5-5.1)
[2021-03-01 12:52] LABS: TOTAL BILIRUBIN 0.6 mg/dL (<0.1-1.0); TOTAL PROTEIN 6.6 g/dL (6.4-8.2)
--- NOTE | 2021-03-01 12:54 | EKG ---
[place] [address] ELECTROCARDIOGRAM REPORT Name: SHAILA CHRISTIANSON Room: [facility]#: [id number] Admission: 03/01/21 Attend Phys: Discharge: Date of : 34 Date of Service: 03/01/21 1138 Report #: [id number] THIS REPORT FOR: //name// [facility] ED Test Date: 2021-03-01 Test Time: 11:38:11 Pat Name: SHAILA CHRISTIANSON Department: Room: Gender: F Manager E Learning: [facility] : 1930 Requested By: Dayana Zambrano Order Number: [id number] MD: Sal Sanders Measurements Intervals [place] Rate: 67 P: 76 WI: 52 QRS: 53 QRSD: 141 T: -5 QT: 428 QTc: 452 Interpretive Statements Sinus rhythm Short WI interval Right bundle branch block Compared to ECG 02/23/2021 17:28:22 Short WI interval now present Electronically Signed On 03-01-2021 12:54:23 CDT by Sal Sanders [email or web address] <ELECTRONICALLY SIGNED> By: Sal Sanders MD, FACC 03/01/21 1254 1138 1138 Sal Sanders MD, FAC /EPI
[2021-03-01 13:51] LABS: URINE BLOOD 2+ (Negative); URINE COLOR YELLOW; URINE GLUCOSE-RANDOM NEGATIVE (Negative); URINE KETONES NEGATIVE (Negative); URINE LEUKOCYTES-REFLEX NEGATIVE (Negative); URINE NITRITE-REFLEX NEGATIVE (Negative); URINE PROTEIN 3+ (Negative); URINE SPECIFIC GRAVITY >= 1.030 (1.005-1.030); URINE UROBILINOGEN 0.2 E.U./dl (0.2-1.0)
[2021-03-01 13:57] LABS: ICTOTEST (BILI CONFIRMATORY) Negative (Negative); URINE BILIRUBIN 1+ (Negative); URINE CLARITY HAZY
[2021-03-01 14:05] LABS: SQUAMOUS 0-3 Few /LPF (0-3)
[2021-03-01 14:06] LABS: BACTERIA-REFLEX None Seen /HPF (None Seen); CASTS None Seen /LPF (None Seen); CRYSTALS None Seen /LPF (None Seen); MUCUS 4-6 Moderate strn/LPF (None Seen); URINE RBC 0-2 Rare /HPF (0-2); URINE WBC-REFLEX None Seen /HPF (0-5)
[2021-03-01 17:45] VITALS: BP 159/95
[2021-03-01 20:45] VITALS: BP 165/94
[2021-03-02] VITALS (7 sets, daily range): BP systolic 155–228; BP diastolic 50–77
[2021-03-02 07:40] LABS: CALCIUM 8.3 mg/dL (8.5-10.1); CREATININE 1.1 mg/dL (0.6-1.3); POTASSIUM 4.2 mmol/L (3.5-5.1)
[2021-03-02 07:43] LABS: MAGNESIUM 1.5 mg/dL (1.8-2.4); PHOSPHORUS* 3.6 mg/dL (2.5-4.9)
[2021-03-02 14:05] LABS: HEMATOCRIT 34.6 % (37.0-47.0); HEMOGLOBIN 11.4 gm/dL (12.0-15.0); MCH 30.9 pg (26.0-34.0); MCV 93.4 fL (80.0-100.0); MPV 8.2 fl. (7.2-11.1); NUCLEATED RBCS 0 /100WBC; PLATELET COUNT* 334 thou/uL (150-400); RDW-CV 13.5 % (10.5-14.5); WBC 15.5 thou/uL (4.0-11.0)
[2021-03-02 14:28] LABS: ALBUMIN 1.7 g/dL (3.4-5.0); CALCIUM 8.7 mg/dL (8.5-10.1); CREATININE 1.2 mg/dL (0.6-1.3); TOTAL BILIRUBIN 0.4 mg/dL (<0.1-1.0)
[2021-03-02 14:48] LABS: ABSOLUTE LYMPHOCYTES 0.8 thou/uL (0.8-5.3); ABSOLUTE MONOCYTES 0.6 thou/uL (0.0-1.2); ABSOLUTE NEUTROPHILS 14.1 thou/uL (1.6-8.1); PLATELET ESTIMATE ADEQUATE
[2021-03-03 04:48] LABS: ABSOLUTE LYMPHOCYTES 1.9 thou/uL (0.8-5.3); ABSOLUTE MONOCYTES 1.1 thou/uL (0.0-1.2); ABSOLUTE NEUTROPHILS 8.9 thou/uL (1.6-8.1); BASOPHILS 0.4 %; EOSINOPHILS 0.2 %; HEMATOCRIT 36.8 % (37.0-47.0); LYMPHOCYTES 15.9 %; MCH 30.9 pg (26.0-34.0); MCHC 32.7 g/dL (28.0-37.0); MCV 94.4 fL (80.0-100.0); MONOCYTES 9.3 %; MPV 8.8 fl. (7.2-11.1); NUCLEATED RBCS 0 /100WBC; PLATELET COUNT* 335 thou/uL (150-400); POLYS 74.2 %; RDW-CV 13.8 % (10.5-14.5); WBC 12.1 thou/uL (4.0-11.0)
[2021-03-03 04:57] LABS: CALCIUM 8.6 mg/dL (8.5-10.1); CREATININE 1.1 mg/dL (0.6-1.3)
[2021-03-03 07:50] VITALS: BP 136/55
[2021-03-03 16:00] VITALS: BP 191/60
[2021-03-03 18:27] VITALS: BP 180/55
[2021-03-03 20:00] VITALS: BP 162/49
[2021-03-04] VITALS: BP 174/63
[2021-03-04 04:07] VITALS: BP 171/63
[2021-03-04 07:55] VITALS: BP 190/74
[2021-03-04 08:29] LABS: ABSOLUTE LYMPHOCYTES 1.1 thou/uL (0.8-5.3); ABSOLUTE MONOCYTES 1.1 thou/uL (0.0-1.2); ABSOLUTE NEUTROPHILS 9.4 thou/uL (1.6-8.1); BASOPHILS 0.3 %; HEMATOCRIT 36.4 % (37.0-47.0); LYMPHOCYTES 9.5 %; MCH 30.9 pg (26.0-34.0); MCV 93.5 fL (80.0-100.0); MONOCYTES 9.4 %; MPV 7.9 fl. (7.2-11.1); NUCLEATED RBCS 0 /100WBC; POLYS 80.8 %; RBC 3.89 mil/uL (4.20-5.00); RDW-CV 13.5 % (10.5-14.5); WBC 11.6 thou/uL (4.0-11.0)
[2021-03-04 08:54] LABS: PLATELET COUNT* 415 thou/uL (150-400)
[2021-03-04 08:57] LABS: ALBUMIN 1.6 g/dL (3.4-5.0); CALCIUM 8.8 mg/dL (8.5-10.1); POTASSIUM 3.8 mmol/L (3.5-5.1); TOTAL BILIRUBIN 0.4 mg/dL (<0.1-1.0); TOTAL PROTEIN 6.1 g/dL (6.4-8.2)
[2021-03-04 16:00] VITALS: BP 183/62
[2021-03-04 20:00] VITALS: BP 165/67
[2021-03-05 01:21] VITALS: BP 169/62
[2021-03-05 08:00] VITALS: BP 187/61
[2021-03-05 08:08] VITALS: BP 187/61
[2021-03-05 08:34] VITALS: BP 187/61
[2021-03-05 08:58] LABS: ABSOLUTE BASOPHILS 0.1 thou/uL (0.0-0.2); ABSOLUTE LYMPHOCYTES 1.8 thou/uL (0.8-5.3); ABSOLUTE MONOCYTES 1.4 thou/uL (0.0-1.2); ABSOLUTE NEUTROPHILS 8.3 thou/uL (1.6-8.1); BASOPHILS 0.4 %; EOSINOPHILS 0.3 %; HEMATOCRIT 32.6 % (37.0-47.0); HEMOGLOBIN 10.7 gm/dL (12.0-15.0); LYMPHOCYTES 15.3 %; MCH 30.5 pg (26.0-34.0); MCHC 32.8 g/dL (28.0-37.0); MCV 92.8 fL (80.0-100.0); MONOCYTES 12.4 %; MPV 8.4 fl. (7.2-11.1); NUCLEATED RBCS 0 /100WBC; PLATELET COUNT* 417 thou/uL (150-400); POLYS 71.6 %; RBC 3.51 mil/uL (4.20-5.00); RDW-CV 13.9 % (10.5-14.5); WBC 11.6 thou/uL (4.0-11.0)
[2021-03-05 10:26] LABS: ALBUMIN 1.5 g/dL (3.4-5.0); CALCIUM 8.6 mg/dL (8.5-10.1); POTASSIUM 3.7 mmol/L (3.5-5.1); TOTAL BILIRUBIN 0.4 mg/dL (<0.1-1.0); TOTAL PROTEIN 5.7 g/dL (6.4-8.2)
== END 2021-03-05 14:15 | DRG 640 ==
LOC: M.ERS 10:17 → M.2W 14:28 → M.TBA-ER 14:28 → M.2W 03-02 09:03
PROVIDERS: Internal Medicine; Nurse Practitioner Family; ADMIT Internal Medicine; ATTEND Internal Medicine
PROC: 2W3LX1Z Immobilization of Right Lower Extremity using Splint (ICD-10-PCS; principal; 2021-03-01)
DX: E86.0 Dehydration (principal); E43 Unspecified severe protein-calorie malnutrition; S93.401A Sprain of unspecified ligament of right ankle, initial encounter; E87.1 Hypo-osmolality and hyponatremia; Z79.899 Other long term (current) drug therapy; Z68.26 Body mass index [BMI] 26.0-26.9, adult; Z88.8 Allergy status to other drugs, medicaments and biological substances; I12.9 Hypertensive chronic kidney disease with stage 1 through stage 4 chronic kidney disease, or unspecified chronic kidney disease; N18.9 Chronic kidney disease, unspecified; I69.341 Monoplegia of lower limb following cerebral infarction affecting right dominant side; I16.0 Hypertensive urgency; W18.39XA Other fall on same level, initial encounter; Y93.89 Activity, other specified; Y92.89 Other specified places as the place of occurrence of the external cause; Y99.8 Other external cause status; S70.11XA Contusion of right thigh, initial encounter; M19.90 Unspecified osteoarthritis, unspecified site; K21.9 Gastro-esophageal reflux disease without esophagitis